=== PATIENT | female | born 1940 | race Caucasian/White ===

== ENCOUNTER → 2017-02-24 | Outpatient (CLI) | payer OTHER ==
[~2017-02-24] MED LIST: CALCIUM 600 +1 EAC1; COLACE100 MG PO; ENOXAPARIN40 MG/0.1 SUBQ; FISH OIL 1,001000 M2 PO; HYDROCODON-ACE1 EAC5 PO; LEVOTHYROXIN0.075 MG PO; LIDODERM 5%1 PATC1 TRANSDERM; SYNTHROID75 MCG PO
== END ==
LOC: CAT 09:45
DX: M25.551 Pain in right hip (principal); M24.641 Ankylosis, right hand

== ENCOUNTER → 2017-05-24 | Outpatient (CLI) | payer OTHER ==
[~2017-05-24] MED LIST changes: +CALCIUM 500 +1 EAC5 PO; +VITAMIN D-32000 UNIT PO
== END ==
LOC: NUC 08:24
DX: S72.001A Fracture of unspecified part of neck of right femur, initial encounter for closed fracture (principal); Z78.0 Asymptomatic menopausal state; X58.XXXA Exposure to other specified factors, initial encounter; Y93.89 Activity, other specified; Y92.89 Other specified places as the place of occurrence of the external cause; Y99.8 Other external cause status

== ENCOUNTER 2017-05-29 05:10 | Inpatient (IN) | payer OTHER ==
[2017-05-17 09:35] LABS: HEMATOCRIT 40.2 % (37.0-47.0); HEMOGLOBIN 13.4 gm/dL (12.0-15.0); MCH 29.4 pg (26.0-34.0); MCHC 33.3 g/dL (28.0-37.0); MCV 88.4 fL (80.0-100.0); RBC 4.55 mil/uL (4.20-5.00); RDW 14.3 % (10.5-14.5); WBC 4.8 thou/uL (4.0-11.0)
[2017-05-17 09:36] LABS: URINE BILIRUBIN NEGATIVE (Negative); URINE BLOOD NEGATIVE (Negative); URINE COLOR YELLOW; URINE GLUCOSE-RANDOM* NEGATIVE (Negative); URINE KETONES NEGATIVE (Negative); URINE LEUKOCYTES-REFLEX NEGATIVE (Negative); URINE PROTEIN (DIPSTICK) NEGATIVE (Negative); URINE UROBILINOGEN 0.2 E.U./dl (0.2-1.0)
[2017-05-17 09:45] LABS: ALBUMIN 3.8 g/dL (3.4-5.0); CALCIUM 9.3 mg/dL (8.5-10.1); CREATININE 0.9 mg/dL (0.6-1.0)
[2017-05-17 09:49] LABS: PROTIME 9.8 Seconds (9.3-11.4)
[~2017-05-29] VITALS: Ht 165.1 cm; Wt 64.2 kg
[2017-05-29] VITALS (10 sets, daily range): BP systolic 95–141; BP diastolic 23–76
--- NOTE | ~2017-05-29 | O ---
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 PROCEDURE: Removal of old TFN nail, right proximal femur and right total hip arthroplasty. SURGEON: Joseph Pacheco MD INDICATIONS: This still active, fully independent 76-year-old female underwent surgical repair of an intertrochanteric fracture of the right femur some time ago. Initially, she did quite well, but gradually she has experienced more and more hip pain. We have debated whether this may be pain from the prominent metal fixation device, but her symptoms are actually more at the joint. Recent CT scan reveals the old fracture to be well healed, but evidence of avascular necrosis with some subcortical fracture and collapse of the femoral head. Given these findings and her persistent and progressive symptoms, we have elected to go ahead with revision for removal of the old metal fixation and replacement with a cemented total hip arthroplasty. I have discussed this with the patient on multiple occasions reviewing treatment options, emphasizing that more conservative measures might be appropriate given her advanced age; however, she states she is still active and fully independent and feels she can no longer remain independent if her hip is not improved in some fashion. Consequently, we have elected to go ahead with the above procedure. DESCRIPTION OF PROCEDURE: The patient was taken to the operating room where she was placed under general anesthesia. Prophylactic intravenous antibiotics were administered. She was turned to the left lateral decubitus position. The right hip, thigh, and leg were meticulously prepped and draped. A slightly curving posterolateral skin incision was made incorporating the old surgical incisions at the right hip. This was carried through fascia exposing the greater trochanter and the posterior aspect of the hip joint. The short external rotators and capsule were taken down and tagged with several #1 Tevdek sutures. The hip was then dislocated posteriorly. The head was found to be somewhat irregular with some cartilage damage consistent with subchondral AVN and collapse. Her old intertrochanteric femur fracture seemed to be well healed. The TFN nail was identified. The proximal locking screw was loosened and the [address] [address] OPERATIVE REPORT Name: DANIEL CANDELARIO Room #: 412-P [facility] M.R.#: [id number] Admission: 05/29/17 Attend Phys: Joseph Pacheco MD Discharge: Date of : 40 Report #: [id number] helical blade was removed from the femoral neck and head region without difficulty. The distal locking screw was removed from the femoral shaft and the intramedullary ben was then removed without difficulty. A femoral neck osteotomy was performed and the head was removed. The acetabulum was inspected. There was some degenerative change there as well and I therefore felt replacement of the acetabulum as well as the femoral head was most appropriate despite the rather minimal preoperative radiographic findings. The femoral canal was then opened with reamers and hand broaches. The Tee and Nephew hip system was utilized and the femur seemed to be best suited for a size 10 cemented stem. Given the previous fracture and some deformity of the proximal femur, I felt the cemented stem was most appropriate in this patient. Once the canal had been prepared and the calcar was trimmed down to an appropriate level, the trial broach was removed and attention directed to the acetabulum. Satisfactory exposure was established. The acetabulum was then sequentially reamed with spherical reamers, gradually advancing to a size 48 mm reamer size. A 48-mm fenestrated cup was then inserted, placing this in alignment with her true acetabulum at about 20 degrees of anteversion and about 45 degrees off of vertical. This new liner seated nicely and appeared to be very secure with gentle impaction, in addition one screw was placed through the apex of the shell. Initially, a 20-mm length screw was tried, but this did not seem to have excellent purchase and so a 25-mm screw was substituted, which seem to have much better purpose and added significantly stability of the cup. A 32-mm liner was then inserted placing this with a 10-degree elevated rim positioned at about the 9 o'clock posterior position. This seated nicely and appeared to be secure. A trial reduction was performed once the femoral broach had been reinserted. The hip seemed best suited for a lateral offset neck angle and a +4 mm neck length using the 32-mm head size. With these trial components in place, alignment, range of motion, stability and leg length were assessed and felt to be satisfactory. The trial components were removed. A cement restrictor was placed in the femoral canal. Two packages of methyl methacrylate cement was mixed and injected into the canal using finger pressure to try to avoid extrusion of cement through the old screw holes. The permanent Tee and Nephew size 10 lateral offset press-fit stem was then inserted. This was positioned in about 15-20 degrees of anteversion. It seated nicely and appeared to be secure. Gentle pressure was held as the cement hardened. Excess cement was removed from around its margin. A 32-mm stainless steel head using a +4 mm neck length was selected, this was impacted onto the Quinones taper. The hip was then reduced, once again alignment, range of motion, stability and leg length were assessed and felt to be satisfactory. The entire wound was copiously irrigated. Good hemostasis was established. The short external rotators and capsule were then repaired back to bone using multiple #1 Tevdek sutures, passed through drill holes in the posterior aspect of greater trochanter. This seemed to improve hip stability. A single Hemovac was left in the wound exiting through a separate stab incision. The fascia was then closed with multiple #1 Vicryl sutures. The subcutaneous tissues were closed with 0 Monocryl. The skin was closed with skin [address] [address] OPERATIVE REPORT Name: DANIEL CANDELARIO Room #: 412-P [facility] .R.#: [id number] Admission: 05/29/17 Attend Phys: Joseph Pacheco MD Discharge: Date of : 40 Report #: [id number] jake. Sterile dressing was applied. The patient was awakened and returned to recovery room in satisfactory condition. <ELECTRONICALLY SIGNED> By: Joseph Pacheco MD 05/30/17 0732 [id number] [id number] Joseph Pacheco MD /carolyn
--- NOTE | ~2017-05-29 | EKG ---
[place] [address] [facility] [place] [address] ELECTROCARDIOGRAM REPORT Name: DANIEL CANDELARIO Room #: PRE IN [facility].#: [id number] Admission: Attend Phys: Joseph Pacheco MD Discharge: Date of : 40 Report #: [id number] THIS REPORT FOR: //name// [facility] Test Date: 2017-05-17 Test Time: 09:37:45 Pat Name: DANIEL CANDELARIO Department: Room: Gender: F [employer] Sales Associate: sheri : 1940 Requested By: Joseph Pacheco Order Number: [id number] MD: Carlos Herbert Measurements Intervals [place] Rate: 65 P: 33 IN: 152 QRS: -69 QRSD: 101 T: 60 QT: 430 QTc: 448 Interpretive Statements Sinus rhythm Left axis deviation Compared to ECG 07/12/2015 14:13:54 ST and T wave abnormality is less pronounced QT interval shortened Electronically Signed On 05-19-2017 8:38:34 CDT by Carlos Herbert [email or web address] <ELECTRONICALLY SIGNED> By: Carlos Herbert MD, [facility] 05/19/17 0838 D: [id number] Carlos Herbert MD, FAC /EPI
[2017-05-30] VITALS: BP 96/40
[2017-05-30 04:00] VITALS: BP 122/64
[2017-05-30 06:19] LABS: HEMATOCRIT 26.1 % (37.0-47.0); HEMOGLOBIN 8.7 gm/dL (12.0-15.0); MCH 29.6 pg (26.0-34.0); MCHC 33.4 g/dL (28.0-37.0); MCV 88.7 fL (80.0-100.0); RBC 2.94 mil/uL (4.20-5.00); RDW 14.3 % (10.5-14.5); WBC 7.4 thou/uL (4.0-11.0)
[2017-05-30 07:23] VITALS: BP 94/41
[2017-05-30 16:07] VITALS: BP 93/46
[2017-05-30 20:00] VITALS: BP 107/45
[2017-05-31 04:49] VITALS: BP 117/50
[2017-05-31 06:39] LABS: HEMATOCRIT 22.3 % (37.0-47.0); HEMOGLOBIN 7.7 gm/dL (12.0-15.0); MCH 30.1 pg (26.0-34.0); MCHC 34.3 g/dL (28.0-37.0); MCV 87.8 fL (80.0-100.0); RBC 2.54 mil/uL (4.20-5.00); RDW 14.2 % (10.5-14.5); WBC 6.4 thou/uL (4.0-11.0)
[2017-05-31 08:56] VITALS: BP 111/50
[2017-05-31 21:21] VITALS: BP 112/50
[2017-06-01 03:27] VITALS: BP 132/54
[2017-06-01 05:51] LABS: HEMATOCRIT 23.4 % (37.0-47.0); HEMOGLOBIN 7.9 gm/dL (12.0-15.0); MCH 29.8 pg (26.0-34.0); MCHC 33.6 g/dL (28.0-37.0); MCV 88.6 fL (80.0-100.0); RBC 2.64 mil/uL (4.20-5.00); RDW 14.6 % (10.5-14.5); WBC 6.7 thou/uL (4.0-11.0)
[2017-06-01 08:26] VITALS: BP 109/53
[2017-06-01 14:17] VITALS: BP 109/53
[2017-06-01] MEDS ORDERED: ASPIR-TRIN325 MG PO (15:11)
[2017-06-01 15:17] VITALS: BP 109/53
== END 2017-06-01 15:45 | disposition home health service (06) | DRG 470 ==
LOC: TBA 05:10 → 4N 05:10 → PRE 06:42 → 4N 13:02 → PRE 15:02 → 4N 06-01 15:45
PROVIDERS: Orthopaedic Surgery
PROC: 0SR90J9 Replacement of Right Hip Joint with Synthetic Substitute, Cemented, Open Approach (ICD-10-PCS; principal; 2017-05-29)
PROC: 0SP904Z Removal of Internal Fixation Device from Right Hip Joint, Open Approach (ICD-10-PCS; principal; 2017-05-29)
DX: M16.11 Unilateral primary osteoarthritis, right hip (principal); M87.88 Other osteonecrosis, other site; G89.29 Other chronic pain; E03.9 Hypothyroidism, unspecified; Z98.42 Cataract extraction status, left eye; Z98.41 Cataract extraction status, right eye
CPT/HCPCS: 10790; 50010; 50101; 50382; 50414; 51057; 51130; 51225; 51412; 51771; 53000; 53367; 56521; 56525; 56527; 62110; 62900; 70005

== ENCOUNTER → 2018-02-01 | Outpatient (CLI) | payer OTHER ==
[~2018-02-01] MED LIST changes: +ASPIR-TRIN325 MG PO
== END ==
LOC: RAD 09:39
DX: Z12.31 Encounter for screening mammogram for malignant neoplasm of breast (principal)

== ENCOUNTER → 2019-04-05 | Outpatient (CLI) | payer OTHER | LOC: RAD 14:57 | DX: Z12.31 Encounter for screening mammogram for malignant neoplasm of breast (principal) ==

== ENCOUNTER → 2019-08-15 | Outpatient (CLI) | payer OTHER | LOC: NUC 10:14 | DX: M81.0 Age-related osteoporosis without current pathological fracture (principal); Z78.0 Asymptomatic menopausal state ==

== ENCOUNTER → 2020-04-10 | Outpatient (CLI) | payer OTHER | LOC: RAD 10:41 | PROVIDERS: ATTEND Family Medicine | DX: Z12.31 Encounter for screening mammogram for malignant neoplasm of breast (principal); N64.89 Other specified disorders of breast ==

== ENCOUNTER → 2020-09-21 | Outpatient (CLI) | payer OTHER | LOC: LAB 14:33 | PROVIDERS: ATTEND Hospitalist | DX: U07.1 COVID-19 (principal) ==

== ENCOUNTER → 2021-11-10 | Outpatient (CLI) | payer OTHER | LOC: BC 14:38 | PROVIDERS: ATTEND Family Medicine | DX: Z12.31 Encounter for screening mammogram for malignant neoplasm of breast (principal) ==